=== PATIENT | male | born 1980 | race Caucasian/White ===

== ENCOUNTER → 2016-12-11 | Outpatient (CLI) | payer OTHER ==
[~2016-12-11] VITALS: Ht 188 cm; Wt 154.4 kg
[~2016-12-11] MED LIST: AMARYL4 MG PO; ASCORBIC ACID500 M3 PO; ATIVAN1 MG PO; GLUCOPHAGE XR,500 MG PO; GLUCOPHAGE500 MG PO; LEXAPRO20 MG PO; LOFIBRA,TRIGLI160 MG PO; MEN'S ONE DAIL1 EACH PO; NOHOMEMEDS; PERPHENAZINE4 MG PO; PRINZIDE 20-121 EACH PO; PROZAC40 MG PO; RED YEAST RICE600 M1 PO; TOPAMAX50 MG PO; TRICOR145 MG PO; TRILAFON4 MG PO; VITAMIN D32000 UNI1 PO
[2016-12-11 10:07] LABS: POINT-OF-CARE METER ID UU13113694
[2016-12-11 12:10] LABS: POINT-OF-CARE METER ID UU13113819
== END | disposition home or self-care (01) ==
LOC: AMB 09:24
PROVIDERS: Internal Medicine
DX: K21.9 Gastro-esophageal reflux disease without esophagitis (principal); R19.7 Diarrhea, unspecified; K64.9 Unspecified hemorrhoids; K62.5 Hemorrhage of anus and rectum; E11.9 Type 2 diabetes mellitus without complications; I10 Essential (primary) hypertension; Z87.891 Personal history of nicotine dependence
CPT/HCPCS: 82948; 88305; 93005; B4087; J2250; J3010